=== PATIENT | female | born 1955 | race Two or more races ===

== ENCOUNTER → 2025-01-06 | Outpatient (CLI) | payer MEDICARE, SELFPAY ==
--- NOTE | 2025-01-06 17:00 | XR_ITS ---
Examination: CT chest, without intravenous contrast. Sagittal and coronal 2-D reconstructions. Exam date and time: January 06, 2025 1836 hrs. Indications: Diagnosis solitary pulmonary nodule, left leg pain 4 months CTDI:vol (mGy) 15.4 DLP: (mGycm) 594 Technique: Multiple 3.0 mm axial sections of the chest to been obtained. Bone and lung density settings are obtained. Sagittal and coronal 2-D reconstructions have been obtained. Low dose protocols were performed. One or more of the following dose reduction techniques were used; automated exposure control, adjustment of the mA and/or KV according to patient size, use of iterative reconstruction technique. Findings: No thoracic aortic aneurysm dilatation Pulmonary artery segments are not enlarged. Moderate calcification left anterior descending coronary artery No paratracheal tracheobronchial or bronchopulmonary adenopathy 16 mm pulmonary nodule right lower lobe image 166 No pneumonia or pulmonary edema or pleural disease Fatty liver 4 mm indeterminate low-density right lobe liver lesion image 88, BS Liver is mildly irregular in contour Absent gallbladder Spleen is not enlarged No pancreatic mass 16 mm left adrenal nodule Mild renal parenchymal scar formation Moderate osteopenia Impression: Moderate calcification left anterior descending coronary artery 4 mm pulmonary nodule right lower lobe, with this study as baseline consider 6 month follow-up CT chest without contrast 16mm mm left adrenal nodule, consider MRI abdomen adrenal glands follow-up, pre and postcontrast, adrenal gland protocol, differential would include primary metastatic adrenal fibroglandular
== END | disposition home or self-care (01) ==
PROVIDERS: PCP Family Medicine; Referring Provider Family Medicine; Visit Provider Family Medicine
DX: R91.8 Other nonspecific abnormal finding of lung field (principal); I25.10 Atherosclerotic heart disease of native coronary artery without angina pectoris
CPT/HCPCS: 71250

== ENCOUNTER → 2025-01-24 | Outpatient (CLI) | payer MEDICARE, SELFPAY ==
--- NOTE | 2025-01-24 15:30 | XR_ITS ---
Examination: Screening digital mammography, bilateral Computer aided detection 3-D breast Tomosynthesis, bilateral Date and time of exam: January 24, 2025 1550 hours Compared to mammograms dating to January 31, 2005. Indication: Screening Technique: Nonmagnified MLO, CC views of the breasts to been obtained, reconstructed from 3-D Tomosynthesis images. R2 computer aided detection program utilized for evaluation of suspicious masses and/or abnormal calcifications. 3-D Tomosynthesis images obtained. Findings: Scattered areas of fibroglandular density 15 mm focal asymmetry retroareolar region left breast Benign calcifications Impression: BI-RADS Category 0: Incomplete: Need additional imaging evaluation Recommend follow-up spot tomographic views focal asymmetry retroareolar region left breast as well as left breast sonography to complete workup
== END | disposition home or self-care (01) ==
LOC: CDIM 15:39
PROVIDERS: Referring Provider Family Medicine; Visit Provider Family Medicine
DX: Z12.31 Encounter for screening mammogram for malignant neoplasm of breast (principal); N64.89 Other specified disorders of breast
CPT/HCPCS: 77063; 77067

== ENCOUNTER → 2025-02-24 | Outpatient (CLI) | payer MEDICARE, SELFPAY ==
[2025-02-21 16:37] LABS: Anion Gap 11 (7-16); BUN/Creatinine Ratio 21 Ratio (12-20); Blood Urea Nitrogen 17 mg/dL (9-23); Carbon Dioxide 28.6 mMol/L (20.0-31.0); Chloride 102 mMol/L (98-107); Creatinine (Component) 0.8 mg/dL (0.6-1.3); Glucose 95 mg/dL (74-106); Osmolality,Calculated 284 (275-295); Potassium 3.4 mMol/L (3.4-5.1); Sodium 142 mMol/L (136-145); eGFR > 60 See Note
--- NOTE | 2025-02-24 16:00 | XR_ITS ---
Examination: MRI abdomen with intravenous contrast. MRI abdomen without intravenous contrast. Date and time of exam: February 24, 2025 1644 hours INDICATIONS: CT examination January 06, 2025. 16 mm left adrenal nodule Technique: Multiple axial, sagittal and coronal sections of the abdomen obtained. Transverse images, TR 6020, TE 107. T1 weighted transverse images, TR 582, TE 9.5. T2-weighted sagittal images, TR 4000, TE 105. T2-weighted sagittal images, TR 4000, TE 5. Coronal images, TR 4210, TE 107. Axial and coronal images are obtained post 20 cc intravenous injection, gadolinium. 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
== END | disposition home or self-care (01) ==
LOC: SMRI 15:30
PROVIDERS: PCP Family Medicine; Referring Provider Family Medicine; Visit Provider Family Medicine
DX: D35.02 Benign neoplasm of left adrenal gland (principal); R91.1 Solitary pulmonary nodule
CPT/HCPCS: 36415; 74183; 80048; A9579

== ENCOUNTER → 2025-03-17 | Outpatient (CLI) | payer MEDICARE, SELFPAY ==
--- NOTE | 2025-03-17 10:00 | XR_ITS ---
Examination: Breast ultrasound, unilateral, left Date and time of exam: March 17, 2025 0956 hours INDICATIONS: Mammogram January 24, 2025 15 mm focal asymmetry retroareolar region left breast Technique: Real-time hernandez scale ultrasonographic imaging performed left breast including all 4 quadrants as well as nipple retroareolar and axillary region. Findings: No cystic or solid mass IMPRESSION: BI-RADS Category 1: Negative study
--- NOTE | 2025-03-17 10:45 | XR_ITS ---
Examination: Diagnostic digital mammography, unilateral, left Computer aided detection 3-D breast Tomosynthesis, unilateral Date and time of exam: March 17, 2025 0952 hours INDICATIONS: 15 mm focal asymmetry retroareolar region left breast on mammogram January 24, 2025 Technique: Nonmagnified MLO, CC views of the left breast have been obtained, reconstructed from 3-D Tomosynthesis images. R2 computer aided detection program utilized for evaluation of suspicious masses and/or abnormal calcifications. 3-D Tomosynthesis images obtained. Findings: Scattered areas of fibroglandular density No suspicious retroareolar mass is depicted Impression: BI-RADS category 2: Benign findings Recommend yearly follow-up mammography
== END | disposition home or self-care (01) ==
LOC: CDIM 09:32
PROVIDERS: Referring Provider Family Medicine; Visit Provider Family Medicine
DX: R92.322 Mammographic fibroglandular density, left breast (principal)
CPT/HCPCS: 76641; 77061; 77065; G0279

== ENCOUNTER → 2025-05-06 | Outpatient (CLI) | payer MEDICARE, SELFPAY ==
--- NOTE | 2025-05-06 16:44 | XR_ITS ---
EXAMINATION: Ankle, left 3 views . Technique: Ankle AP, oblique, lateral 3 views Date and time of exam: May 06, 2025 1648 hours INDICATIONS: Left ankle pain and swelling beginning 7 days ago. FINDINGS: Medial malleolar soft tissue swelling No fracture 5 mm plantar bony calcaneal spur Mild osteoarthritis tibiotalar joint IMPRESSION: No fracture or cortical bone destruction 5 mm plantar bony calcaneal spur
== END | disposition home or self-care (01) ==
PROVIDERS: PCP Family Medicine; Referring Provider Student in an Organized Health Care Education/Training Program; Visit Provider Student in an Organized Health Care Education/Training Program
DX: M77.32 Calcaneal spur, left foot (principal)
CPT/HCPCS: 73610